=== PATIENT | male | born 1945 | race Caucasian/White ===

== ENCOUNTER 2017-12-15 12:24 | Emergency (ER) | payer OTHER ==
[~2017-12-15] VITALS: Ht 175.3 cm; Wt 78.5 kg
[~2017-12-15 12:24] MED LIST: ASPIR 8181 MG PO; CRESTOR10 MG PO; EFFIENT10 MG PO; LISINOPRIL20 MG PO; NITROGLYCERIN0.4 MG SUBLING
[2017-12-15] MEDS ORDERED: MEDROLDOSEPACK PO (12:51)
[2017-12-15] MEDS ORDERED: HYDROCODONE-AP1 EAC6 PO (12:51)
[2017-12-15] MEDS ORDERED: KEFLEX500 M1 PO (12:51)
[2017-12-15 13:07] VITALS: BP 211/87
== END 2017-12-15 13:09 | disposition home or self-care (01) ==
LOC: M.ERS 12:24
DX: M10.9 Gout, unspecified (principal); I10 Essential (primary) hypertension; E78.5 Hyperlipidemia, unspecified

== ENCOUNTER → 2020-12-23 | Outpatient (CLI) | payer OTHER ==
[~2020-12-23] MED LIST changes: +HYDROCODONE-AP1 EAC6 PO; +JARDIANCE10 MG PO; +KEFLEX500 M1 PO; +MEDROLDOSEPACK PO; +METFORMIN HCL500 M3 PO; +NORVASC 2.5 MG2.5 M1 PO; +PLAVIX 75 MG TA75 MG PO
--- NOTE | 2020-12-23 18:21 | CARDNUC ---
[place] [address] CARDIAC NUCLEAR IMAGING REPORT Name: CHIOMA SHAVER Room: [facility]#: [id number] Admission: 12/23/20 Attend Phys: Shaka Henao, Discharge: Date of : 45 Date of Service: 12/23/201819 Report #: [id number] THIS REPORT FOR: cc: Edwar Thomas John E. DO Liston, Michael J. MD [facility] ~ APPROVED REPORT Study performed: 12/23/2020 09:38:51 Exam: Nuclear Stress Test Indication: Chest pain, abnormal stress test Patient Location: Out-Patient Stress Tech: Rubi Tiwari Stress Nurse: Bonita Bhatia RN Ht: 5 ft 9 in Wt: 155 lbs BSA: 1.85 m2 HR: 58 bpm BP: 144/75 mmHg BMI: 22.88 Medical History Medical History: Carotid artery disease, PCI Medications: PLAVIX,LISINOPRIL, ROSUVASTATIN,ASA MG Allergies: No known drug allergies Cardiac Risk Factors: Age, Hyperlipidemia, HTN, DM Previous Cardiac Procedures: PCI, CAD Exercise History: Physically active Stress Test Details Stress Test: Pharmacologic stress testing performed using 0.4 mg of regadenoson per 5 mL given IV over 10 seconds. Reason for pharmacologic stress test: physical limitation. HR Resting HR: 58 bpm Max Heart Rate (APMHR): 145 bpm Max HR Achieved: 66 bpm Target HR (85% APMHR): 123 bpm % of APMHR: 45 Recovery HR: 65 bpm BP Resting BP: 144/75 mmHg Max BP: 174/80 mmHg BP response to stress: [place] [address] CARDIAC NUCLEAR IMAGING REPORT Name: CHHAYAHCIOMA ROGEL Room: [facility]#: [id number] Admission: 12/23/20 Attend Phys: Shaka Henao, Discharge: Date of : 45 Date of Service: 12/23/20 1820 Report #: [id number] stress. ECG Resting ECG: Sinus Rhythm Stress ECG: Sinus Rhythm ST Change: None Arrhythmia: None Recovery ECG: Sinus Rhythm Recovery ST Change: None Clinical Reason for Termination: Completed protocol The patient tolerated Lexiscan infusion without significant cardiac symptoms. Stress ECG Conclusion Baseline twelve-lead EKG shows sinus rhythm without significant ST segment or T wave abnormality. EKGs obtained during and post Lexiscan infusion show sinus rhythm with no significant ST segment or T wave changes when compared to baseline. There are occasional unifocal premature ventricular contraction. NM EXAM: Myocardial Perfusion REST/STRESS Resting Data Rest SPECT myocardial perfusion imaging was performed in supine position 30 minutes following the intravenous injection of 10.2 mCi of Tc-99m Sestamibi. Time of rest injection: 08:20 The images were gated to evaluate regional wall motion and calculate left ventricular ejection fraction. Administration Route: IV Administration Site: Right AC Pharmacologic Stress Pharmacologic stress test was performed by injecting Regadenoson 0.4 mg IV push followed by the intravenous injection of 32.0 mCi of Tc-99m Sestamibi. Time of stress injection: 09:50 Administration Route: IV Administration Site: Right AC Heart Rate at time of stress injection: 66 bpm. Gated Stress SPECT was performed 45 minutes after stress injection. The images were gated to evaluate regional wall motion and calculate left ventricular ejection fraction. [place] [address] CARDIAC NUCLEAR IMAGING REPORT Name: CHIOMA SHAVER Room: [facility]#: [id number] Admission: 12/23/20 Attend Phys: Shaka Henao, Discharge: Date of : 45 Date of Service: 12/23/20 1820 Report #: [id number] Study Quality Study: Fair Artifact: Moderate Diaphragmatic artifact Study Data At rest, the left ventricular ejection fraction was 58%.. Post stress, the left ventricular ejection was 62%.. TID = 0.92. Perfusion Perfusion studies obtained at rest show a moderate sized moderate intensity region of photopenia involving the basal to distal inferior wall that is far less pronounced on stress images obtained in the supine position. Post-rest prone imaging shows uniform uptake of the radioisotope. This would suggest diaphragmatic attenuation artifact. Wall Motion Gated images are somewhat limited due to attenuation artifact. Global LV systolic function is preserved. Nuclear Conclusion ECG Findings: negative for ischemia Clinical Findings: negative for ischemia Nuclear Findings: negative for ischemia Exercise Capacity: not assessed Left Ventricular Function: Preserved Risk Study: low Perfusion study show no defect to suggest ischemia. Left ventricular systolic function appears preserved on gated studies. This is a low risk study. <Conclusion> Baseline twelve-lead EKG shows sinus rhythm without significant ST segment or T wave abnormality. EKGs obtained during and post Lexiscan infusion show sinus rhythm with no significant ST segment or T wave changes when compared to baseline. There are occasional unifocal premature ventricular contraction. <ELECTRONICALLY SIGNED> By: Shaka Henao MD, FACC 12/23/201819 19 19 Shaka Henao MD, FACC /INF
== END ==
LOC: M.NUC 07:43
PROVIDERS: ATTEND Internal Medicine Cardiovascular Disease
DX: I25.119 Atherosclerotic heart disease of native coronary artery with unspecified angina pectoris (principal)